=== PATIENT | male | born 1945 | race Caucasian/White ===

== ENCOUNTER 2024-10-29 08:54 | Outpatient (CLI) | payer OTHER, SELFPAY ==
--- NOTE | 2024-10-29 09:06 | CTR_ITS ---
PROCEDURE INFORMATION: Exam: CT Neck With Contrast Exam date and time: 10/29/2024 9:27 AM Age: 79 years old Clinical indication: Dysphagia / difficulty swallowing; Prior surgery; Surgery date: 6+ months; Surgery type: RT carotid; Difficulty swallowing x 2 months, ; additional info: Neck mass TECHNIQUE: Imaging protocol: Computed tomography of the neck with contrast. Radiation optimization: All CT scans at this facility use at least one of these dose optimization techniques: automated exposure control; mA and/or kV adjustment per patient size (includes targeted exams where dose is matched to clinical indication); or iterative reconstruction. Contrast material: OMNI 350; Contrast volume: 100 ml; Contrast route: INTRAVENOUS (IV); COMPARISON: No relevant prior studies available. RADIATION DOSE METRICS: Total DLP (mGy-cm): 188.23 FINDINGS: Brain: Visible portions of the brain appear normal. There are no visible intracranial vascular lesions. Paranasal sinuses: Paranasal sinuses are normal to the extent seen. Mastoid air cells: Mastoid air cells are clear. Salivary glands: Salivary glands are normal. Pharynx: See Lymph nodes finding. Larynx: Unremarkable. Epiglottis is normal. Thyroid: Normal. No enlarged or calcified nodules. Trachea: Visualized trachea is unremarkable. Lungs: Unremarkable as visualized. Lymph nodes: There is no cervical lymphadenopathy. Some dystrophic bilateral palatine tonsillar calcifications are noted. Vasculature: An endovascular graft is identified crossing the right carotid bifurcation and extending into right internal carotid artery. Bones/joints: There is no excessive calcification of the stylohyoid ligaments. C5 through C7 interbody fusion is evident without visible surgical hardware. Advanced C4-C5 disc space narrowing is noted with some calcification of the PLL at this level as well as small anteriorly directed endplate osteophytes. These do not appear to be large enough to significantly compromise esophageal function.There is no fracture, lytic, or blastic lesion. Sternotomy hardware is also noted. Soft tissues: Unremarkable. No significant soft tissue swelling. CT/CT neck w con* [id number] IMPRESSION: 1. No lesion to account for the patient's dysphagia. 2. Prior right carotid endarterectomy.
[2024-10-29] MEDS: iohexol 350 mg/mL 500 mL Btl (per mL) IV (09:33)
== END 2024-10-29 08:55 | disposition home or self-care (01) ==
LOC: RAD 08:56
PROVIDERS: PCP Family Medicine; Visit Provider Family Medicine
DX: R13.10 Dysphagia, unspecified (principal); R22.1 Localized swelling, mass and lump, neck
CPT/HCPCS: 70491